=== PATIENT | male | born 1960 | race Caucasian/White ===

== ENCOUNTER 2016-12-29 15:57 | Emergency (ER) | payer BC ==
[2016-12-29 16:32] VITALS: BP 168/100
--- NOTE | 2016-12-29 17:05 | UC ---
Respiratory Complaint HPI - HPI Summary HPI Summary: 56 yo male with a week hx of cough/left thoracic back pain and myalgias no sob has been very fatigued productive cough - History of Current Complaint Chief Complaint: UCRespiratory Stated Complaint: COUGH,CONGESTION Time Seen by Provider: 12/29/16 16:53 Hx Obtained From: Patient Onset/Duration: Gradual Onset, Lasting Days Timing: Constant Severity Initially: Mild Severity Currently: Moderate Pain Intensity: 8 Pain Scale Used: 0-10 Numeric Character: Cough: Productive Aggravating Factors: Nothing Alleviating Factors: Nothing - Allergies/Home Medications Allergies/Adverse Reactions: Allergies Allergy/AdvReac Type Severity Reaction Status Date / Time Tetracycline Allergy Unknown Verified 08/08/14 20:01 Reaction Details Codeine AdvReac See Comment Verified 08/08/14 20:01 Home Medications: Home Medications Aleve 220mg 440 mg PO Q12H PRN 12/29/16 [History Confirmed 12/29/16] PMH/Surg Hx/FS Hx/Imm Hx Previously Healthy: Yes Cardiovascular History: Deep Vein Thrombosis Respiratory History: Bronchitis, Pneumonia - Surgical History Surgical History: Yes Surgery Procedure, Year, and Place: Hemorrhoids, 2013. DVT Right Calf, 2009, [facility]. Bilateral Hand Fracture Repairs - Family History Known Family History: Positive: Cardiac Disease, Hypertension, Diabetes, Other - [place] - Social History Alcohol Use: Occasionally Alcohol Amount: 6-12 Beers Substance Use Type: Excessive Caffeine Smoking Status (MU): Heavy Every Day Tobacco Smoker Type: Cigarettes Amount Used/How Often: 2 PPD Length of Time of Smoking/Using Tobacco: 42 Years Have You Smoked in the Last Year: Yes Cessation Counseling: Patient Advised to Stop Review of Systems Constitutional: Fatigue Skin: Negative Eyes: Negative ENT: Negative Respiratory: Cough Cardiovascular: Negative Gastrointestinal: Negative Genitourinary: Negative Motor: Negative Neurovascular: Negative Musculoskeletal: Myalgia Neurological: Negative Psychological: Negative Is Patient Immunocompromised?: No All Other Systems Reviewed And Are Negative: Yes Physical Exam Triage Information Reviewed: Yes Appearance: Well-Appearing, No Pain Distress, Well-Nourished Vital Signs: Initial Vital Signs Temp 97.8 F 12/29/16 16:18 Pulse 69 12/29/16 16:18 Resp 18 12/29/16 16:18 BP 168/100 12/29/16 16:18 Pulse Ox 100 12/29/16 16:18 Vital Signs Reviewed: Yes Eyes: Positive: Conjunctiva Clear ENT: Positive: Hearing grossly normal. Negative: Nasal congestion, TM bulging, Sinus tenderness, Uvula midline Dental: Positive: Other: - poor dentition with caries and missing teeth Respiratory: Positive: No respiratory distress, No accessory muscle use, Crackles - ? left base, Wheezing Cardiovascular: Positive: RRR Musculoskeletal: Positive: ROM Intact, No Edema Neurological: Positive: Alert Psychological Exam: Normal Skin Exam: Normal UC Diagnostic Evaluation - Laboratory O2 Sat by Pulse Oximetry: 100 - normal/not hypoxic - Radiology Xray Interpretation: No Acute Changes Radiology Interpretation Completed By: Radiologist Respiratory Course/Dx - Course Course Of Treatment: refuses to use inhaler. knows he should stop smoking - Differential Dx/Diagnosis Provider Diagnoses: acute bronchitis. cigarette use/abuse Discharge - Discharge Plan Condition: Stable Disposition: HOME Prescriptions: Amoxicillin PO (*) [Amoxicillin 875 MG (*)] 875 mg PO BID #20 tab Prednisone [Deltasone] 40 mg PO DAILY #10 tab Patient Education Materials: Acute Bronchitis (ED) Forms: *Work Release Referrals: Laurence Kenny PA [Primary Care Provider] - 2 Weeks Additional Instructions: rest fluids recheck in 4 days if not better
[2016-12-29] MEDS ORDERED: predniSONE TAB* 20 MG PO ONE (17:11)
[2016-12-29] MEDS ORDERED: Ipratropium 0.5MG/2.5ML NEB* 0.5 MG/2.5 ML NEB.SOLN INH ONE (17:11)
[2016-12-29] MEDS ORDERED: Albuterol 2.5 MG/3 ML NEB.SOL* (0.083%) INH ONE (17:11)
--- NOTE | 2016-12-29 17:33 | RAD ---
INDICATION: Cough COMPARISON: None TECHNIQUE: PA and lateral dual-energy views were obtained. FINDINGS: Bones/Soft Tissues: There are no acute bony findings. Cardiomediastinal: The cardiomediastinal silhouette is normal. Lungs: There are no infiltrates. Pleura: There are no pleural effusions. Other: None IMPRESSION: NO ACTIVE DISEASE.
== END 2016-12-29 17:55 | disposition home or self-care (01) ==
LOC: UCCORT 15:57
DX: J20.9 Acute bronchitis, unspecified (principal); F17.210 Nicotine dependence, cigarettes, uncomplicated; F15.10 Other stimulant abuse, uncomplicated; Z71.6 Tobacco abuse counseling; Z88.5 Allergy status to narcotic agent; Z88.1 Allergy status to other antibiotic agents
CPT/HCPCS: 71020; 99212; G0463; J7512; J7644